=== PATIENT | female | born 1990 | race African-American/Black ===

== ENCOUNTER 2022-06-27 11:34 | Inpatient (IN) ==
[2022-06-27 11:54] LABS: BILIRUBIN,URINE NEGATIVE (NEGATIVE); BLOOD/HEMOGLOBIN,URINE 4+ (NEGATIVE); GLUCOSE, URINE NEGATIVE (NEGATIVE); KETONES,URINE 1+ (NEGATIVE); LEUKOCYTE ESTERASE ,URINE 1+ (NEGATIVE); NITRITES,URINE NEGATIVE (NEGATIVE); PROTEIN,URINE 2+ (NEGATIVE); UROBILINOGEN,URINE 1+ (NORMAL)
[2022-06-27] MEDS ORDERED: PITOCIN IVP ONE (11:58)
[2022-06-27] MEDS ORDERED: D5 LR + PITOCIN 10 UNITS/L 10 UNITS/1,000 ML BAG IV PRN (11:58)
[2022-06-27] MEDS ORDERED: D5 1/2 NS 1,000 ML 1,000 ML IV SCH (12:00)
[2022-06-27] MEDS ORDERED: AMPICILLIN VIAL 2 GRAM 2 G in NS 100 ML IV + SPIKE MINIBAG* 100 ML IV SCH (12:00)
[2022-06-27 12:01] LABS: AMNISURE ROM TEST NO MEMBRANES RUPTURE (NO RUPTURE); APPEARANCE,URINE SLIGHTLY HAZY (CLEAR); COLOR,URINE YELLOW (YELLOW)
[2022-06-27] MEDS ORDERED: NS 100 ML IV 100 ML ONE (12:01)
[2022-06-27] MEDS ORDERED: AMPICILLIN VIAL 2 GRAM ONE (12:02)
[2022-06-27 12:38] LABS: BASOPHILS % (AUTO) 0.2 % (0.2-1.0); EOSINOPHILS % (AUTO) 0.2 % (0.9-2.9); HEMATOCRIT 30.1 % (36.0-47.0); LYMPHOCYTES # (AUTO) 1.8 X10^3/uL (1.3-2.9); LYMPHOCYTES % (AUTO) 29.7 % (21.0-51.0); MEAN CORPUSCULAR HEMOGLOBIN 28.7 pg (27.0-34.0); MEAN CORPUSCULAR HGB CONC 33.4 g/dL (33.0-35.0); MEAN CORPUSCULAR VOLUME 85.8 fL (80.0-100.0); MEAN PLATELET VOLUME 7.1 fL (7.4-11.0); MONOCYTES # (AUTO) 0.4 x10^3/uL (0.3-0.8); NEUTROPHILS # (AUTO) 3.8 x10^3/uL (2.2-4.8); NEUTROPHILS % (AUTO) 62.9 % (42.0-75.0); RED CELL DISTRIBUTION WIDTH 16.5 % (11.6-16.5)
[2022-06-27 12:59] LABS: BLOOD UREA NITROGEN 4 mg/dL (7-18); CALCIUM 8.7 mg/dL (8.5-10.1); CHLORIDE 102 mmol/L (98-107); CREATININE 0.59 mg/dL (0.55-1.02); SODIUM 137 mmol/L (136-145); eGFR NON BLACK RACES > 60 (>60)
[2022-06-27] MEDS ORDERED: D5 LR + PITOCIN 10 UNITS/L 10 UNITS/1,000 ML BAG IV ONE (13:51)
[2022-06-27] MEDS ORDERED: PITOCIN ONE (13:51)
[2022-06-27] MEDS ORDERED: D5 1/2 NS 1,000 ML 1,000 ML IV ONE (13:51)
[2022-06-27] MEDS ORDERED: D5 1/2 NS 1,000 mL + PITOCIN 20 UNITS/L IV 20 UNITS/1,000 ML BAG IV ONE (13:51)
[2022-06-27] MEDS ORDERED: BETADINE SOLN ONE (13:51)
[2022-06-27] MEDS ORDERED: MOTRIN TAB 800 MG PO PRN (14:33)
--- NOTE | 2022-06-27 14:38 | DR.OB ---
OB Quick Note - Assessment/Plan Assessment/Plan: Delivery Note ELECTRIC SWITCH TESTER 06/27/22 at 2:23pm VTX/OA, Patient complete and pushing. Head delivered over intact perineum. No nuchal cord. Nose and mouth bulb suctioned. Body delivered over intact perineum. Cord clamped x 2 and cut. handed to attendant. Cord sent for gases. Placenta delivered spontaneously / intact / 3 vessel cord. No CVX / vaginal / perineal tears. Viable female infant, VTX/OA, delivered by , wt=7'14" and 9/9, stable to NBN. Mother stable to NBN. [id number]=[id number].
[2022-06-27] MEDS: D5 1/2 NS 1,000 ML 1,000 ML with PITOCIN 20 UNITS IV SCH ×2 (14:45)
[2022-06-27] MEDS ORDERED: AMBIEN PO PRN (15:16)
[2022-06-27] MEDS ORDERED: ADACEL or BOOSTRIX TDaP VACCINE IM ONE (15:16)
[2022-06-27] MEDS ORDERED: DERMOPLAST PAIN RELIEF SPRAY TOP PRN (15:16)
[2022-06-27] MEDS ORDERED: MILK OF MAGNESIA PO PRN (15:16)
[2022-06-27] MEDS ORDERED: AMPICILLIN VIAL 1 GRAM 1 G in NS 50 ML IV + SPIKE MINIBAG* 50 ML IV SCH (16:00)
[2022-06-28] MEDS: D5 1/2 NS 1,000 ML 1,000 ML with PITOCIN 20 UNITS IV SCH ×6 (00:39→15:54)
[2022-06-28 05:22] LABS: HEMATOCRIT 30.2 % (36.0-47.0); HEMOGLOBIN 10.1 g/dL (12.0-16.0)
[2022-06-28] MEDS ORDERED: PRENATAL PLUS PO SCH (09:00)
[2022-06-28 16:47] VITALS: BP 104/58
== END 2022-06-28 17:00 | disposition home or self-care (01) | DRG 807 ==
LOC: ER 11:34 → LD 11:46 → MED/SURG 15:18
PROVIDERS: ADMIT Specialist; ATTEND Specialist
DX: B95.1 Streptococcus, group B, as the cause of diseases classified elsewhere; O98.82 Other maternal infectious and parasitic diseases complicating childbirth; Z3A.41 41 weeks gestation of pregnancy; Z37.0 Single live birth

== ENCOUNTER 2024-10-17 13:10 | Inpatient (IN) ==
[2024-10-17 13:21] VITALS: BMI 33.0
[2024-10-17 13:27] LABS: BLOOD/HEMOGLOBIN,URINE 3+ (NEGATIVE); LEUKOCYTE ESTERASE ,URINE 2+ (NEGATIVE); NITRITES,URINE NEGATIVE (NEGATIVE)
[2024-10-17] MEDS: D5 1/2 NS 1,000 ML 1,000 ML IV SCH (13:30)
[2024-10-17 13:37] LABS: AMNISURE ROM TEST NO MEMBRANES RUPTURE (NO RUPTURE)
[2024-10-17 13:38] LABS: APPEARANCE,URINE SLIGHTLY HAZY (CLEAR); SQUAMOUS EPITHELIAL CELL,UR MANY /HPF (NEGATIVE)
[2024-10-17] MEDS ORDERED: NS 100 ML IV 100 ML ONE (13:44)
[2024-10-17] MEDS: AMPICILLIN VIAL 2 GRAM ONE (13:45)
[2024-10-17] MEDS ORDERED: D5 1/2 NS 1,000 ML 1,000 ML IV ONE (13:45)
[2024-10-17] MEDS ORDERED: ZOFRAN INJ 4 MG VIAL IVP PRN (14:03)
[2024-10-17] MEDS ORDERED: REGLAN INJ 10 MG VIAL IVP PRN (14:03)
[2024-10-17] MEDS ORDERED: NUBAIN INJ 20 MG AMP IVP PRN (14:03)
[2024-10-17] MEDS ORDERED: PITOCIN IVP ONE (14:03)
[2024-10-17] MEDS ORDERED: OXYTOCIN 20 UNIT/1,000 ML-NS 20 UNIT/1,000 ML PLAST..BAG IV PRN (14:03)
[2024-10-17 14:21] LABS: MEAN PLATELET VOLUME 8.0 fL (7.4-11.0); RED CELL DISTRIBUTION WIDTH 15.9 % (11.6-16.5)
[2024-10-17 14:29] LABS: CREATININE 0.54 mg/dL (0.55-1.02); eGFR NON BLACK RACES > 60 (>60)
--- NOTE | 2024-10-17 14:44 | DR.OB ---
OB QUICK NOTE Assessment/Plan (1) Active labor: Assessment/Plan: L&D 10/17/24 at 2:40pm S-No complaint except pain with CTX. O-Afebrile,VSS OTT=701 with good LTV, +accel, no decel. CTX=q 1 1/2 to 2 min., moderate by palpation CVX=6-8cm/50%/-1/VTX AROM with clear fluid noted. IUPC and FSE placed. A-IUP at 41 1/7 weeks in active labor +GBS AMA P-Begin pitocin augmentation F/U labs IV ABX in labor for +GBS Anticipate (2) Group B streptococcal carriage complicating : (3) Advanced maternal age (AMA) in :
[2024-10-17] MEDS ORDERED: AMPICILLIN VIAL 2 GRAM 2 G in NS 100 ML IV + SPIKE MINIBAG* 100 ML IV ONE (15:00)
[2024-10-17] MEDS ORDERED: BETADINE SOLN ONE (15:05)
[2024-10-17] MEDS ORDERED: MOTRIN TAB 800 MG PO PRN ×2 (15:29→16:19)
--- NOTE | 2024-10-17 15:29 | DR.OB ---
OB QUICK NOTE Assessment/Plan (1) Active labor: Assessment/Plan: Delivery Note TECHNICAL RECRUITER 10/17/24 at 3:17pm Patient complete and pushing. Mother and baby stable. Head delivered over intact perineum. No nuchal cord. Nose and mouth bulb suctioned. Body delivered over intact perineum. Cord clamped x 2 and cut. Infant handed to attendant. Cord sent for gases. Placenta delivered spontaneously / intact / 3 vessel cord. No CVX / vaginal / perineal tears noted. Viable female infant delivered by , VTX/OA, wt=8'1" and 8/9, stable to NBN. Mother stable to RR. NLA=[id number]. (2) Group B streptococcal carriage complicating : (3) Advanced maternal age (AMA) in :
[2024-10-17] MEDS ORDERED: OXYTOCIN 20 UNIT/1,000 ML-NS 20 UNIT/1,000 ML PLAST..BAG IV SCH (15:30)
[2024-10-17] MEDS ORDERED: MILK OF MAGNESIA PO PRN (16:19)
[2024-10-17] MEDS ORDERED: AMBIEN PO PRN (16:19)
[2024-10-17] MEDS ORDERED: DERMOPLAST PAIN RELIEF SPRAY TOP PRN (16:19)
[2024-10-17] MEDS ORDERED: ADACEL or BOOSTRIX TDaP VACCINE IM ONE (18:00)
[2024-10-17] MEDS ORDERED: AMPICILLIN VIAL 1 GRAM 1 G in NS 50 ML IV 50 ML IV SCH (20:00)
[2024-10-18 06:24] VITALS: O2SAT 98
[2024-10-18] MEDS: PRENATAL PLUS PO SCH (08:09)
[2024-10-18 12:05] VITALS: RESP 20
[2024-10-18 16:08] VITALS: BP 96/55; PULSE 71; TEMP 97.8
== END 2024-10-18 16:45 | disposition home or self-care (01) | DRG 807 ==
LOC: ER 13:10 → LD 13:45 → MED/SURG 16:21
PROVIDERS: ADMIT Specialist; ATTEND Specialist
DX: O98.82 Other maternal infectious and parasitic diseases complicating childbirth; Z37.0 Single live birth; O48.0 Post-term pregnancy; B95.1 Streptococcus, group B, as the cause of diseases classified elsewhere; Z3A.41 41 weeks gestation of pregnancy